=== PATIENT | male | born 1985 | race Caucasian/White ===

== ENCOUNTER 2017-11-04 19:29 | Emergency (ER) | payer OTHER ==
[~2017-11-04] VITALS: Ht 182.9 cm; Wt 68.0 kg
[2017-11-04 20:57] LABS: URINE BILIRUBIN NEGATIVE (Negative); URINE BLOOD NEGATIVE (Negative); URINE CLARITY CLEAR; URINE COLOR YELLOW; URINE GLUCOSE-RANDOM NEGATIVE (Negative); URINE KETONES 1+ (Negative); URINE LEUKOCYTES-REFLEX NEGATIVE (Negative); URINE NITRITE-REFLEX NEGATIVE (Negative); URINE PROTEIN NEGATIVE (Negative); URINE UROBILINOGEN 0.2 E.U./dl (0.2-1.0)
[2017-11-04 21:15] LABS: AMP/METHAMP Negative (Negative); BARBITURATES Negative (Negative); BENZODIAZEPINES Negative (Negative); COCAINE Negative (Negative); METHADONE Negative (Negative); OPIATES Negative (Negative); PCP Negative (Negative); THC POSITIVE (Negative)
[2017-11-04] MEDS ORDERED: LIDODERM1 EACH TRANSDERM (21:24)
[2017-11-04] MEDS ORDERED: NAPROSYN500 MG PO (21:24)
[2017-11-04] MEDS ORDERED: FLEXERIL PO (21:24)
[2017-11-04 21:41] VITALS: BP 122/67
== END 2017-11-04 21:44 | disposition home or self-care (01) ==
LOC: M.ERS 19:29
PROVIDERS: Physician Assistant
DX: M54.5 Low back pain (principal); F41.0 Panic disorder [episodic paroxysmal anxiety]; F17.210 Nicotine dependence, cigarettes, uncomplicated